=== PATIENT | female | born 1950 | race Caucasian/White ===

== ENCOUNTER 2021-02-03 15:23 | Emergency (ER) | payer MEDICARE ==
[~2021-02-03] VITALS: Ht 170.1 cm; Wt 77.1 kg
[~2021-02-03 15:23] MED LIST: ASPIR-LOW81 MG PO; CIPROFLOXACIN500 MG PO; FLAGYL500 MG PO; MULTIPLE VITAMI1 CAP PO; PREDNICOT20 MG PO; VIBRAMYCIN100 MG PO
[2021-02-03 15:58] VITALS: BP 154/95
== END 2021-02-03 17:25 | disposition left against medical advice (07) ==
LOC: ED 15:23
DX: R09.89 Other specified symptoms and signs involving the circulatory and respiratory systems (principal); R09.81 Nasal congestion; R05 Cough; Z53.21 Procedure and treatment not carried out due to patient leaving prior to being seen by health care provider

== ENCOUNTER 2021-02-04 00:42 | Inpatient (IN) | payer MEDICARE ==
[~2021-02-04] VITALS: Ht 171.4 cm; Wt 84.9 kg
[2021-02-04 01:26] VITALS: BP 139/86
[2021-02-04 02:19] LABS: BASO # 0.1 10*3/uL (0.0-0.1); BASO % 0.5 % (0.0-1.0); EOS # 0.1 10*3/uL (0.0-0.4); HEMATOCRIT 46.9 % (37.0-47.0); LYMPH # 2.9 10*3/uL (1.3-4.4); LYMPH % 26.2 % (27.0-41.0); MEAN CELL VOLUME 91.1 fl (81.0-99.0); MEAN CORPUSCULAR HGB 32.2 pg (27.0-31.0); MEAN CORPUSCULAR HGB CONC 35.4 g/dl (33.0-37.0); MEAN PLATELET VOLUME 9.4 fl (9.6-12.3); MONO % 9.4 % (3.0-9.0); NEUT # 6.8 10*3/uL (2.3-7.9); NEUT % 62.2 % (47.0-73.0); PLATELET COUNT AUTOMATED 256 10*3/uL (130-400); RED BLOOD COUNT 5.15 10*6/uL (4.10-5.10); RED CELL DISTRI WIDTH 11.7 % (0-14.5); WHITE BLOOD COUNT 10.9 10*3/uL (4.8-10.8)
[2021-02-04 02:39] LABS: ALBUMIN 3.1 gm/dl (3.1-4.5); ALKALINE PHOSPHATASE 100 U/L (45-117); BUN 21 mg/dl (7-24); CHLORIDE 99 mmol/L (98-107); CPK 35 U/L (26-192); CREATININE 0.63 mg/dL (0.55-1.02); LDH 141 U/L (84-246); POTASSIUM 3.9 mmol/L (3.5-5.1); SGOT/AST 19 IU/L (3-35); SGPT/ALT 34 U/L (12-78); SODIUM 131 mmol/L (136-145); TOTAL PROTEIN 7.5 gm/dL (6.4-8.2)
[2021-02-04 08:40] LABS: BASO # 0.1 10*3/uL (0.0-0.1); BASO % 0.8 % (0.0-1.0); EOS # 0.1 10*3/uL (0.0-0.4); HEMATOCRIT 48.9 % (37.0-47.0); LYMPH # 2.6 10*3/uL (1.3-4.4); LYMPH % 25.5 % (27.0-41.0); MEAN CELL VOLUME 92.8 fl (81.0-99.0); MEAN CORPUSCULAR HGB 31.9 pg (27.0-31.0); MEAN CORPUSCULAR HGB CONC 34.4 g/dl (33.0-37.0); MEAN PLATELET VOLUME 9.9 fl (9.6-12.3); MONO # 0.8 10*3/uL (0.1-1.0); MONO % 8.2 % (3.0-9.0); NEUT # 6.5 10*3/uL (2.3-7.9); NEUT % 63.7 % (47.0-73.0); PLATELET COUNT AUTOMATED 255 10*3/uL (130-400); RED BLOOD COUNT 5.27 10*6/uL (4.10-5.10); RED CELL DISTRI WIDTH 11.9 % (0-14.5); WHITE BLOOD COUNT 10.3 10*3/uL (4.8-10.8)
[2021-02-04 08:47] VITALS: BP 148/89
[2021-02-04 09:07] LABS: ALBUMIN 2.9 gm/dl (3.1-4.5); ALKALINE PHOSPHATASE 95 U/L (45-117); BUN 18 mg/dl (7-24); CHLORIDE 102 mmol/L (98-107); CHOLESTEROL 173 mg/dL (<200); CREATININE 0.52 mg/dL (0.55-1.02); LDL CHOLESTEROL 117 mg/dL (9-159); POTASSIUM 3.7 mmol/L (3.5-5.1); SGOT/AST 21 IU/L (3-35); SGPT/ALT 32 U/L (12-78); SODIUM 134 mmol/L (136-145); TOTAL PROTEIN 7.2 gm/dL (6.4-8.2); TRIGLYCERIDES 125 mg/dl (<150)
[2021-02-04 09:20] VITALS: BP 134/89
[2021-02-04 09:27] LABS: ACT PARTIAL THROMBO TIME 26.5 SECONDS (20.0-32.1)
[2021-02-04 09:32] LABS: VITAMIN D, 25-HYDROXY 36.5 ng/mL (30-100)
[2021-02-04 12:00] VITALS: BP 154/99
[2021-02-04 16:00] VITALS: BP 153/97
[2021-02-04 20:00] VITALS: BP 128/74
[2021-02-05] VITALS: BP 95/54
[2021-02-05 06:06] LABS: BUN 22 mg/dl (7-24); CHLORIDE 102 mmol/L (98-107); CREATININE 0.53 mg/dL (0.55-1.02); SODIUM 134 mmol/L (136-145)
[2021-02-05 06:20] LABS: BASO % 0.3 % (0.0-1.0); HEMATOCRIT 47.6 % (37.0-47.0); LYMPH % 15.3 % (27.0-41.0); MEAN CELL VOLUME 91.7 fl (81.0-99.0); MEAN CORPUSCULAR HGB 31.8 pg (27.0-31.0); MEAN CORPUSCULAR HGB CONC 34.7 g/dl (33.0-37.0); MEAN PLATELET VOLUME 10.5 fl (9.6-12.3); MONO # 0.1 10*3/uL (0.1-1.0); MONO % 1.8 % (3.0-9.0); NEUT # 5.4 10*3/uL (2.3-7.9); NEUT % 81.7 % (47.0-73.0); PLATELET COUNT AUTOMATED 263 10*3/uL (130-400); RED BLOOD COUNT 5.19 10*6/uL (4.10-5.10); RED CELL DISTRI WIDTH 11.8 % (0-14.5); WHITE BLOOD COUNT 6.6 10*3/uL (4.8-10.8)
[2021-02-05 08:07] VITALS: BP 106/76
[2021-02-05 12:00] VITALS: BP 134/84
[2021-02-05 16:00] VITALS: BP 137/72
[2021-02-05 20:00] VITALS: BP 137/87
[2021-02-06] VITALS: BP 118/83
[2021-02-06 06:54] LABS: BUN 27 mg/dl (7-24); CHLORIDE 103 mmol/L (98-107); CREATININE 0.56 mg/dL (0.55-1.02); POTASSIUM 3.9 mmol/L (3.5-5.1); SODIUM 134 mmol/L (136-145)
[2021-02-06 08:00] VITALS: BP 97/58
[2021-02-06] MEDS ORDERED: AVPAK AZITHROM250 M1 PO (10:00)
[2021-02-06] MEDS ORDERED: ENOXAPARIN80 MG/0.2 SC (10:00)
[2021-02-06] MEDS ORDERED: METOPROLOL SUCC50 M1 PO (10:00)
[2021-02-06] MEDS ORDERED: ENTRESTO 24 MG1 EACH PO (10:00)
== END 2021-02-06 11:22 | disposition other institution (70) | DRG 640 ==
LOC: ED 00:42 → EDHOLD 06:04 → 4E 06:04
PROVIDERS: Emergency Medicine; Hospitalist; ADMIT Student in an Organized Health Care Education/Training Program; ATTEND Student in an Organized Health Care Education/Training Program
DX: E87.1 Hypo-osmolality and hyponatremia (principal); I21.4 Non-ST elevation (NSTEMI) myocardial infarction; J44.1 Chronic obstructive pulmonary disease with (acute) exacerbation; R17 Unspecified jaundice; J40 Bronchitis, not specified as acute or chronic; Z20.822 Contact with and (suspected) exposure to COVID-19; D75.1 Secondary polycythemia; E11.65 Type 2 diabetes mellitus with hyperglycemia; I25.5 Ischemic cardiomyopathy; I50.9 Heart failure, unspecified; R00.0 Tachycardia, unspecified; Z88.0 Allergy status to penicillin; Z90.49 Acquired absence of other specified parts of digestive tract; Z98.51 Tubal ligation status

== ENCOUNTER → 2021-05-04 | Outpatient (CLI) | payer MEDICARE ==
[~2021-05-04] MED LIST changes: +AVPAK AZITHROM250 M1 PO; +ENOXAPARIN80 MG/0.2 SC; +ENTRESTO 24 MG1 EACH PO; +METOPROLOL SUCC50 M1 PO
== END | disposition home or self-care (01) ==
LOC: CARD 11:29
PROVIDERS: ATTEND Internal Medicine Cardiovascular Disease
DX: I50.21 Acute systolic (congestive) heart failure (principal)

== ENCOUNTER 2021-06-15 17:44 | Emergency (ER) | payer MEDICARE ==
[~2021-06-15] VITALS: Ht 170.1 cm; Wt 77.1 kg
[2021-06-15 17:57] VITALS: BP 107/64
[2021-06-15 18:38] LABS: HEMATOCRIT 38.8 % (37.0-47.0); MEAN CELL VOLUME 89.4 fl (81.0-99.0); MEAN CORPUSCULAR HGB 30.9 pg (27.0-31.0); MEAN CORPUSCULAR HGB CONC 34.5 g/dl (33.0-37.0); MEAN PLATELET VOLUME 9.6 fl (9.6-12.3); PLATELET COUNT AUTOMATED 247 10*3/uL (130-400); RED BLOOD COUNT 4.34 10*6/uL (4.10-5.10); RED CELL DISTRI WIDTH 11.8 % (0-14.5); WHITE BLOOD COUNT 8.8 10*3/uL (4.8-10.8)
[2021-06-15 18:51] LABS: ACT PARTIAL THROMBO TIME 27.1 SECONDS (20.0-32.1); INTERNATIONAL NORM RATIO 0.9 (2.0-3.5)
[2021-06-15 18:54] LABS: ALKALINE PHOSPHATASE 122 U/L (45-117); BUN 30 mg/dl (7-24); CHLORIDE 102 mmol/L (98-107); CREATININE 1.02 mg/dL (0.55-1.02); LIPASE 98 U/L (73-393); POTASSIUM 4.2 mmol/L (3.5-5.1); SGOT/AST 24 IU/L (3-35); SGPT/ALT 52 U/L (12-78); SODIUM 132 mmol/L (136-145); TOTAL PROTEIN 7.7 gm/dL (6.4-8.2)
[2021-06-15 19:09] LABS: ATYPICAL LYMPHS 2 % (0-0); PLATELET SUFFICIENCY NORMAL (NORMAL); TOTAL CELLS COUNTED 100 #CELLS
== END 2021-06-15 21:19 | disposition home or self-care (01) ==
LOC: ED 17:44
PROVIDERS: Emergency Medicine
DX: U07.1 COVID-19 (principal); N17.9 Acute kidney failure, unspecified; R73.9 Hyperglycemia, unspecified; E88.09 Other disorders of plasma-protein metabolism, not elsewhere classified; R79.82 Elevated C-reactive protein (CRP); J44.9 Chronic obstructive pulmonary disease, unspecified; Z88.0 Allergy status to penicillin; Z90.49 Acquired absence of other specified parts of digestive tract; Z98.51 Tubal ligation status; Z98.890 Other specified postprocedural states

== ENCOUNTER → 2022-01-07 | Outpatient (CLI) | payer MEDICARE ==
[~2022-01-07] MED LIST changes: +ALDACTONE25 MG PO; +GLIPIZIDE10 M2 PO; +LANTUS SOL100 UNIT/1 SC; +OMEPRAZOLE MAGN20 MG PO; +TOPROL XL25 MG PO; +ZESTRIL10 MG PO
== END | disposition home or self-care (01) ==
LOC: MAMMO 11:30
PROVIDERS: ATTEND Family Medicine
DX: N63.10 Unspecified lump in the right breast, unspecified quadrant (principal); N60.01 Solitary cyst of right breast; R92.8 Other abnormal and inconclusive findings on diagnostic imaging of breast

== ENCOUNTER → 2022-08-17 | Outpatient (CLI) | payer OTHER | END | disposition home or self-care (01) | LOC: SDC 01:09 → EDSTATUS 11:00 | PROVIDERS: ATTEND Physician Assistant | DX: R92.8 Other abnormal and inconclusive findings on diagnostic imaging of breast (principal) ==

== ENCOUNTER 2023-01-31 16:47 | Inpatient (IN) | payer OTHER ==
[~2023-01-31] VITALS: Wt 106.6 kg
[2023-01-31] VITALS (12 sets, daily range): BP systolic 101–158; BP diastolic 61–91
[2023-01-31 17:08] LABS: BASO % 0.4 % (0.0-1.0); EOS # 0.1 10*3/uL (0.0-0.4); EOS % 0.9 % (1.0-4.0); LYMPH # 2.7 10*3/uL (1.3-4.4); LYMPH % 29.3 % (27.0-41.0); MEAN CELL VOLUME 93.1 fl (81.0-99.0); MEAN CORPUSCULAR HGB 31.5 pg (27.0-31.0); MEAN CORPUSCULAR HGB CONC 33.8 g/dl (33.0-37.0); MEAN PLATELET VOLUME 9.4 fl (9.6-12.3); MONO # 0.7 10*3/uL (0.1-1.0); MONO % 8.1 % (3.0-9.0); NEUT # 5.5 10*3/uL (2.3-7.9); NEUT % 60.4 % (47.0-73.0); PLATELET COUNT AUTOMATED 225 10*3/uL (130-400); RED BLOOD COUNT 4.51 10*6/uL (4.10-5.10); RED CELL DISTRI WIDTH 12.6 % (0-14.5)
[2023-01-31] MEDS ORDERED: JARDIANCE25 MG PO (17:10)
[2023-01-31] MEDS ORDERED: CLARITIN10 MG PO (17:11)
[2023-01-31] MEDS ORDERED: ROSUVASTATIN CA20 MG PO (17:11)
[2023-01-31 17:22] LABS: ACT PARTIAL THROMBO TIME 26.5 SECONDS (20.0-32.1)
[2023-01-31 17:49] LABS: ALKALINE PHOSPHATASE 136 U/L (46-116); BUN 22 mg/dl (9-23); CHLORIDE 101 mmol/L (98-107); LIPASE 26 U/L (12-53); POTASSIUM 4.3 mmol/L (3.4-5.1); SGPT/ALT 25 U/L (10-49); TOTAL PROTEIN 7.6 gm/dL (6.0-8.0)
[2023-01-31 20:17] LABS: BILIRUBIN Negative (Negative); BLOOD Negative (Negative); CLARITY Clear (Clear); COLOR Yellow (Yellow); GLUCOSE 3+ (Negative); KETONE Negative (Negative); LEUKO ESTERASE Negative (Negative); NITRITE Negative (Negative); PH 5.5 (4.5-8.0); SPECIFIC GRAVITY >= 1.030 (1.001-1.030)
[2023-01-31 20:25] LABS: BACTERIA 2+
== END 2023-01-31 23:29 | disposition short-term general hospital (02) | DRG 62 ==
LOC: ED 16:47 → EDHOLD 18:22
PROVIDERS: Emergency Medicine; ADMIT Internal Medicine; ATTEND Internal Medicine
DX: I63.9 Cerebral infarction, unspecified (principal); E87.1 Hypo-osmolality and hyponatremia; I50.22 Chronic systolic (congestive) heart failure; E78.5 Hyperlipidemia, unspecified; E11.40 Type 2 diabetes mellitus with diabetic neuropathy, unspecified; R00.0 Tachycardia, unspecified; E11.65 Type 2 diabetes mellitus with hyperglycemia; R29.708 NIHSS score 8; R74.8 Abnormal levels of other serum enzymes; K21.9 Gastro-esophageal reflux disease without esophagitis; Z88.0 Allergy status to penicillin; Z79.899 Other long term (current) drug therapy; Z79.4 Long term (current) use of insulin; Z79.84 Long term (current) use of oral hypoglycemic drugs; Z98.51 Tubal ligation status; Z90.49 Acquired absence of other specified parts of digestive tract; Z83.3 Family history of diabetes mellitus; I25.2 Old myocardial infarction; Z87.440 Personal history of urinary (tract) infections

== ENCOUNTER 2023-03-20 12:59 | Emergency (ER) | payer OTHER ==
[~2023-03-20] VITALS: Wt 100.2 kg
[~2023-03-20 12:59] MED LIST changes: +CLARITIN10 MG PO; +JARDIANCE25 MG PO; +ROSUVASTATIN CA20 MG PO
[2023-03-20 13:46] LABS: ABG BASE EXCESS 1.7 mmol/L (-2.0-2.0); ARTERIAL BLOOD GAS PH 7.55 (7.35-7.45)
[2023-03-20 13:59] LABS: BILIRUBIN Negative (Negative); BLOOD 1+ (Negative); CLARITY Clear (Clear); COLOR Yellow (Yellow); GLUCOSE 3+ (Negative); KETONE 2+ (Negative); LEUKO ESTERASE Negative (Negative); NITRITE Negative (Negative); PH 5.5 (4.5-8.0); SPECIFIC GRAVITY 1.025 (1.001-1.030)
[2023-03-20 14:01] LABS: BASO # 0.1 10*3/uL (0.0-0.1); BASO % 0.7 % (0.0-1.0); EOS % 0.2 % (1.0-4.0); HEMATOCRIT 38.3 % (37.0-47.0); LYMPH # 0.8 10*3/uL (1.3-4.4); LYMPH % 8.6 % (27.0-41.0); MEAN CORPUSCULAR HGB 31.3 pg (27.0-31.0); MEAN CORPUSCULAR HGB CONC 33.7 g/dl (33.0-37.0); MEAN PLATELET VOLUME 10.3 fl (9.6-12.3); MONO # 0.8 10*3/uL (0.1-1.0); MONO % 8.9 % (3.0-9.0); NEUT # 7.1 10*3/uL (2.3-7.9); NEUT % 79.2 % (47.0-73.0); PLATELET COUNT AUTOMATED 258 10*3/uL (130-400); RED BLOOD COUNT 4.12 10*6/uL (4.10-5.10); RED CELL DISTRI WIDTH 12.8 % (0-14.5)
[2023-03-20 14:12] LABS: BACTERIA 1+; MUCOUS 1+; WBC 21-30 wbc/hpf (0-5); YEAST 1+
[2023-03-20 14:22] LABS: POTASSIUM 3.1 mmol/L (3.4-5.1); TOTAL PROTEIN 7.4 gm/dL (6.0-8.0)
[2023-03-20 15:49] LABS: ABG BASE EXCESS -2.8 mmol/L (-2.0-2.0); ARTERIAL BLOOD GAS PH 7.358 (7.35-7.45)
[2023-03-20 17:30] VITALS: BP 110/35
== END 2023-03-20 19:13 | disposition short-term general hospital (02) ==
LOC: ED 12:59
PROVIDERS: Emergency Medicine; Nurse Practitioner
DX: R65.21 Severe sepsis with septic shock (principal); I62.9 Nontraumatic intracranial hemorrhage, unspecified; J44.9 Chronic obstructive pulmonary disease, unspecified; E11.9 Type 2 diabetes mellitus without complications; I10 Essential (primary) hypertension; Z88.0 Allergy status to penicillin; Z90.49 Acquired absence of other specified parts of digestive tract; Z98.51 Tubal ligation status; Z98.890 Other specified postprocedural states

== ENCOUNTER 2023-04-20 18:21 | Inpatient (IN) | payer OTHER ==
[~2023-04-20] VITALS: Ht 165.1 cm; Wt 83.3 kg
[~2023-04-20 18:21] MED LIST changes: +ALDACTONE25 M1 PO; +ASPIRIN REGIMEN81 M2 PO; +CARVEDILOL12.5 MG PO; +Clopidogrel75 MG PO; +DEPAKENE S250 MG/5 M PO; +DIOVAN80 M1 PO; +ERTAPENEM1 GM IV; +HUMALOG100 UNIT/1 SC; +INSULIN GL100 UNIT/5 SQ; +LASIX20 MG PO; +LIPITOR80 MG PO; +MAGNESIUM400 M1 PO; +NEURONTIN100 MG PO; +VITAMIN D31250 MCG PO
[2023-04-20 20:00] VITALS: BP 85/48
[2023-04-21] VITALS: BP 63/32
[2023-04-21 08:00] VITALS: BP 58/28
[2023-04-21 12:00] VITALS: BP 60/29
[2023-04-21 16:00] VITALS: BP 60/32
[2023-04-21 20:00] VITALS: BP 62/24
[2023-04-22 08:00] VITALS: BP 64/32
== END 2023-04-22 12:50 | DRG 871 ==
LOC: 4E 18:21 → 5E 18:21 → 4E 04-21 22:09
PROVIDERS: ADMIT Internal Medicine; ATTEND Internal Medicine
DX: A41.9 Sepsis, unspecified organism (principal); N17.0 Acute kidney failure with tubular necrosis; N39.0 Urinary tract infection, site not specified; E44.0 Moderate protein-calorie malnutrition; E87.20 Acidosis, unspecified; K92.2 Gastrointestinal hemorrhage, unspecified; Z16.12 Extended spectrum beta lactamase (ESBL) resistance; R65.20 Severe sepsis without septic shock; D64.9 Anemia, unspecified; R73.9 Hyperglycemia, unspecified; R31.9 Hematuria, unspecified; E87.8 Other disorders of electrolyte and fluid balance, not elsewhere classified; E87.6 Hypokalemia; Z51.5 Encounter for palliative care; Z68.30 Body mass index [BMI] 30.0-30.9, adult